=== PATIENT | female | born 1985 | race Caucasian/White ===

== ENCOUNTER 2021-08-14 23:10 | Observation (INO) ==
[2021-08-14] MEDS ORDERED: SODIUM CHLORIDE 0.9% 1000ML 1,000 ML IV STA (23:52)
[2021-08-14] MEDS ORDERED: ONDANSETRON INJ 2 MG/ML 2 ML VIAL IV STA (23:52)
--- NOTE | 2021-08-15 00:46 | Emergency Department Note ---
History of Present Illness General Chief complaint: Arrhythmia/Palpitations Stated complaint: IRREGULAR HEARTBEAT, NAUSEA Time Seen by Provider: 08/14/21 23:32 History of Present Illness Maximum Pain Intensity: 8 This 36 year old female patient with significant past medial history of meta static breast cancer presents to the ED today for evaluation of tachycardia and nausea. Pt. states she had tachycardia of >200 bpm all day, starting this morning, until about 9pm. She states her HR did occasionally drop to the 160's- 170's intermittently throughout the day, but until 9pm, did not drop to normal. She states she spent the entire day sleeping, notes she has had tachycardia like this before but has never been seen for it in the past. She states she has been tolerating PO fluids throughout the day, but has had decreased intake. She denies drug or alcohol use. She now complains of nausea, no vomiting. No abdominal pain. Generalized pain is rated 8/10 and sharp. Notes she feels "gas sy" and requesting "something for my belly." Home Medications Medication Instructions Recorded Confirmed Type multivitamin (Multiple Vitamins) 1 tab PO QAM 06/06/20 08/15/21 History lorazepam 0.5 mg tablet (Ativan) 1 mg PO DAILY PRN 09/24/20 08/15/21 History anastrozole 1 mg tablet (Arimidex) 1 mg PO QPM 04/04/21 08/15/21 History hydromorphone 8 mg tablet 12 mg PO .Q3 PRN tab 04/04/21 08/15/21 History (Dilaudid) methadone 10 mg tablet 10 mg PO TID tab 04/04/21 08/15/21 History palbociclib 75 mg capsule (Ibrance) See Rx Instructions PO DAILY 04/04/21 08/15/21 History prednisolone 5 mg tablet 5 mg PO DAILY #20 tab 07/19/21 08/15/21 Rx Blood Builder Otc 2 tab PO QAM 07/25/21 08/15/21 History albuterol sulfate 90 mcg/actuation 2 puff INHALATION Q6H PRN 07/25/21 08/15/21 History aerosol inhaler guaifenesin 600 mg tablet, 600 mg PO BID PRN #60 tab 08/05/21 08/15/21 Rx extended release 12 hr (Mucinex) nicotine 14 mg/24 hr daily 1 patch TRANSDERMAL DAILY 08/05/21 08/15/21 History transdermal patch ondansetron HCl 4 mg tablet 4 mg PO Q8H PRN 08/15/21 08/15/21 History Allergies Allergy/AdvReac Type Severity Reaction Status Date / Time banana Allergy Severe Anaphylaxis Verified 08/15/21 00:09 bupropion [From Wellbutrin] AdvReac Mild "Doesn't Verified 08/15/21 00:09 feel right" Past Med/Surg History Medical History Abnormal LFTs Acute respiratory failure with hypoxia Bronchitis HX PAST WINTER-LAST INHALER USE 07/24/21 Cancer of left breast metastatic to brain Chronic back pain Chronic prescription opiate use Dry cough Gastric ulcer HX 6 MONTHS AGO-TREATED [facility]-IMPROVED Hypoalbuminemia Hypoxia 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 Lung cancer Malignant pleural effusion Metastatic breast cancer osseous, brain( s/p stereotactic RT 04/2021) and currently undergoing further evaluation for cavitary and noncavitary pulmonary nodules 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 Flynn 07/11/2020 Family History Father Hypertension Grandfather Hypertension Grandmother Cancer Other Multiple sclerosis Social History Smoking Status: Current every day smoker Tobacco Type: Cigarettes packs per day: 0.5; Cigarettes Per Day: 10-20 CIGS A DAY; Second Hand Exposure: No; Hx Alcohol Use: No Hx Substance Use: No Preferred Language: Congolese Communication Ability: Effective Visual Impairment: No Limitations Hearing Ability: Normal Field Insurance Sales Manager Required: No Beliefs That Will Affect Care: None marital status: single Current Living Situation: Spouse current occupational status: unemployed current occupation: How many Children do You have: 2 Other Information That Helps Us Care for You: No Feels Safe at Home: Yes Safety Concerns: Feels Safe At This Time during the past year weight has: decreased > 10 lbs Physical Activity Frequency: Daily Assistive Devices: Glasses Review of Systems A total of 10 systems reviewed and were otherwise negative Physical Exam Vital Signs Vital Signs - 24 hr 08/14/21 23:25 08/15/21 00:27 08/15/21 02:00 Temperature 37 C Temperature Source Oral Pulse Rate 86 Pulse Rate [Right Finger] 80 71 Pulse Rhythm [Right Finger] Regular Regular Pulse Strength [Right Finger] Normal Normal Respiratory Rate 20 13 17 Respiratory Effort / Characteristics Non-Labored Spontaneous Non-Labored Spontaneous Respiratory Depth Normal Normal Respiratory Pattern Regular Blood Pressure 125/86 Blood Pressure [Right Arm] 111/85 112/80 Blood Pressure Mean 99 Blood Pressure Mean [Right Arm] 93 90 Blood Pressure Position [Right Arm] Lying Lying Pulse Oximetry 96 97 97 Oxygen Delivery Method Room Air Room Air Sepsis Recent Fever Within 48 Hours No Sepsis New/Unexplained Change in Mental Status No Sepsis Action Taken by Nursing No Action Required VITALS: Vitals are noted on the nurse's note and reviewed by myself. Vital signs stable. GENERAL: This is a 36-year-old white female, in no acute distress, nondiaphoretic, well-developed well-nourished. SKIN: The skin was without rashes, erythema, edema, or bruising. There is no tenting of the skin. Capillary refill less than 2 seconds. HEAD: Normocephalic atraumatic. EYES: Conjunctivae without injection, sclerae without icterus. NECK: Supple without nuchal rigidity. No lymphadenopathy. No thyromegaly. Cervical spine is nontender. No JVD. HEART: Regular rate and rhythm without murmurs gallops or rubs. LUNGS: Clear to auscultation bilaterally without wheezes, rales or rhonchi. No retractions or accessory muscle use. ABDOMEN: Positive bowel sounds x 4. Soft, nontender, without masses or organom egaly. Fam sign negative. No guarding or rebound tenderness. MUSCULOSKELETAL: No muscle atrophy, erythema, or edema noted. Full range of motion without joint tenderness in all extremities. No tenderness to palpation. Normal gait. Strength 5/5 throughout. NEURO: Patient was alert and oriented to person place and time. No focal neurological deficits. Course Course The patient was seen and evaluated as above. An order was placed for continuous cardiac monitoring. The monitor shows a normal sinus rhythm at a rate of 71 bpm. IV access obtained, labs drawn. Patient hydrated with IV fluids, medicated with Zofran. X-ray imaging performed and reviewed by myself as noted. Labs reviewed by myself. I discussed the findings with the patient at bedside. Discussed recommendation for admission. Patient was agreeable Discussed case with the truck sales manager. I discussed the [facility] He did agree to see and evaluate the patient for admission. Administered Medications Lactated Ringer's (Lr) 1,000 mls @ 75 mls/hr IV .[id number] ONE Stop: 08/15/21 15:37 Last Admin: 08/15/21 02:50 Dose: 75 mls/hr Documented by: [id number] Discontinued Medications Sodium Chloride (Nss 1000ml) 1,000 mls @ 999 mls/hr IV .[id number] STA Stop: 08/15/21 00:52 Last Infusion: 08/15/21 01:45 Dose: 0 mls/hr Documented by: [id number] Admin: 08/15/21 00:39 Dose: 999 mls/hr Documented by: [id number] Famotidine (Pepcid 20mg Iv Push) 20 mg in 5 mls @ 2.5 mls/min IV NOW STA Stop: 08/15/21 02:10 Last Admin: 08/15/21 02:24 Dose: 2.5 mls/min Documented by: [id number] Ioversol (Optiray 320 125ml) 125 ml IV ONCE ONE Stop: 08/15/21 02:47 Last Admin: 08/15/21 02:46 Dose: 118 ml Documented by: [id number] Morphine Sulfate (Morphine Sulfate 2 Mg/Ml Carp) 2 mg IV NOW STA Stop: 08/15/21 02:10 Last Admin: 08/15/21 02:24 Dose: 2 mg Documented by: [id number] Ondansetron HCl (Ondansetron Inj 2 Mg/Ml 2 Ml Vial) 4 mg IV NOW STA Stop: 08/14/21 23:53 Last Admin: 08/15/21 00:34 Dose: 4 mg Documented by: [id number] Ondansetron HCl (Ondansetron Inj 2 Mg/Ml 2 Ml Vial) 4 mg IV NOW STA Stop: 08/15/21 01:33 Last Admin: 08/15/21 01:45 Dose: 4 mg Documented by: [id number] Medical Decision Making Differential Diagnosis Premature contractions, electrolyte abnormality, cardiac dysrhythmia, thyroid dysfunction, pulmonary embolism, infection, gastrointestinal, as well as other pathologies. Medical Records Attestation: I reviewed the patient's medical records. Home Medications Current Medication List: was personally reviewed by me Laboratory Data Attestation: I reviewed the patient's lab results. No leukocytosis, a concern thrombocytopenia. Renal, hepatic function, and electrolytes without significant abnormality. INR 1.0. Troponin elevated at 685.5. TSH 0.228, free T4 0.87. Urinalysis negative for blood or evidence of infection. COVID-19 testing negative Result diagrams: 08/15/21 00:33 08/15/21 00:33 Lab Results 08/15/21 08/15/21 08/15/21 Range/Units 00:33 00:33 00:33 WBC 5.05 (4.8-10.8) K/uL RBC 3.33 L (4.2-5.4) M/uL Hgb 11.8 L (12.0-16.0) g/dL Hct 35.1 L (37-47) % MCV 105.4 H (80-100) fL MCH 35.4 H (25-34) pg MCHC 33.6 (32-36) g/dL RDW Std Deviation 65.5 H (36.4-46.3) fL RDW Coeff of Elsy 16.9 H (11.5-14.5) % Plt Count 278 (130-400) K/uL MPV 9.2 (7.4-10.4) fL Immature Gran % (Auto) 0.2 % Neut % (Auto) 86.5 % Lymph % (Auto) 8.5 % [place] % (Auto) 4.8 % Eos % (Auto) 0.0 % Baso % (Auto) 0.0 % Neut # (Auto) 4.37 (1.4-6.5) K/uL Lymph # (Auto) 0.43 L (1.2-3.4) K/uL [place] # (Auto) 0.24 (0.11-0.59) K/uL Eos # (Auto) 0.00 (0-0.5) K/uL Baso # (Auto) 0.00 (0-0.2) K/uL Immature Gran # (Auto) 0.01 (0.00-0.02) K/uL PT 10.7 (9.0-12.0) Seconds INR 1.0 (0.9-1.1) APTT 39.1 H (21.0-31.0) Seconds PTT Ratio 1.4 Sodium 138 (136-145) mmol/L Potassium 3.8 (3.5-5.1) mmol/L Chloride 105 (98-107) mmol/L Carbon Dioxide 25 (21-32) mmol/L Anion Gap 8 (3-11) BUN 17 (6-23) mg/dl Creatinine 0.55 L (0.6-1.2) mg/dl Est Cr Clr Drug Dosing 104.7 ml/min Est GFR ( Amer) 137.9 ml/min Est GFR (Non-Af Amer) 119.0 ml/min BUN/Creatinine Ratio 30.9 H (10-20) Glucose 126 H (70-99(Fasting)) mg/dl Calcium 9.0 (8.5-10.1) mg/dl Magnesium 2.0 (1.7-2.4) mg/dl Total Bilirubin 0.4 (0.2-1.0) mg/dl AST 17 (13-39) U/L ALT 14 (7-52) U/L Alkaline Phosphatase 49 (34-104) U/L Troponin I High Sens 685.5 H* (0-14) pg/ml Total Protein 7.0 (6.0-8.3) gm/dl Albumin 3.8 (3.4-5.0) gm/dl Globulin 3.2 (2.5-4.0) gm/dl Albumin/Globulin Ratio 1.2 (0.9-2) TSH (0.300-4.500) uIu/ml Free T4 (0.61-1.60) ng/dl Urine Color Urine Appearance (Clear) Urine pH (4.5-7.5) Ur Specific [place] (1.000-1.030) Urine Protein (Negative) Urine Glucose (UA) (Negative) Urine Ketones (Negative) Urine Blood (Negative) Urine Nitrite (Negative) Urine Bilirubin (Negative) Urine Urobilinogen (Negative) Ur Leukocyte Esterase (Negative) Urine WBC (Auto) (0-5) /hpf Urine RBC (Auto) (0-4) /hpf U Hyaline Cast (Auto) (0-5) /lpf U Epithel Cells (Auto) (0-5) /lpf Urine Bacteria (Auto) (Negative) Ur Renal Epithelial Cell Urine Opiates Screen (Neg) Ur Methadone, Qual (Neg) Urine Barbiturates (Neg) Ur Phencyclidine (PCP) (Neg) U Amphetamin/Meth Scrn (Neg) MDMA (Ecstasy) Screen (Neg) U Benzodiazepines Scrn (Neg) Ur Cocaine Metabolite (Neg) U Marijuana (THC) Screen (Neg) SARS-CoV-2, RNA, NAAT (NEGATIVE) 08/15/21 08/15/21 08/15/21 Range/Units 00:33 01:45 01:45 WBC (4.8-10.8) K/uL RBC (4.2-5.4) M/uL Hgb (12.0-16.0) g/dL Hct (37-47) % MCV (80-100) fL MCH (25-34) pg MCHC (32-36) g/dL RDW Std Deviation (36.4-46.3) fL RDW Coeff of Elsy (11.5-14.5) % Plt Count (130-400) K/uL MPV (7.4-10.4) fL Immature Gran % (Auto) % Neut % (Auto) % Lymph % (Auto) % [place] % (Auto) % Eos % (Auto) % Baso % (Auto) % Neut # (Auto) (1.4-6.5) K/uL Lymph # (Auto) (1.2-3.4) K/uL [place] # (Auto) (0.11-0.59) K/uL Eos # (Auto) (0-0.5) K/uL Baso # (Auto) (0-0.2) K/uL Immature Gran # (Auto) (0.00-0.02) K/uL PT (9.0-12.0) Seconds INR (0.9-1.1) APTT (21.0-31.0) Seconds PTT Ratio Sodium (136-145) mmol/L Potassium (3.5-5.1) mmol/L Chloride (98-107) mmol/L Carbon Dioxide (21-32) mmol/L Anion Gap (3-11) BUN (6-23) mg/dl Creatinine (0.6-1.2) mg/dl Est Cr Clr Drug Dosing ml/min Est GFR ( Amer) ml/min Est GFR (Non-Af Amer) ml/min BUN/Creatinine Ratio (10-20) Glucose (70-99(Fasting)) mg/dl Calcium (8.5-10.1) mg/dl Magnesium (1.7-2.4) mg/dl Total Bilirubin (0.2-1.0) mg/dl AST (13-39) U/L ALT (7-52) U/L Alkaline Phosphatase (34-104) U/L Troponin I High Sens (0-14) pg/ml Total Protein (6.0-8.3) gm/dl Albumin (3.4-5.0) gm/dl Globulin (2.5-4.0) gm/dl Albumin/Globulin Ratio (0.9-2) TSH 0.228 L (0.300-4.500) uIu/ml Free T4 0.87 (0.61-1.60) ng/dl Urine Color Yellow Urine Appearance Clear (Clear) Urine pH 8.0 H (4.5-7.5) Ur Specific [place] 1.032 H (1.000-1.030) Urine Protein 1+ H (Negative) Urine Glucose (UA) Negative (Negative) Urine Ketones Negative (Negative) Urine Blood Negative (Negative) Urine Nitrite Negative (Negative) Urine Bilirubin Negative (Negative) Urine Urobilinogen Negative (Negative) Ur Leukocyte Esterase Negative (Negative) Urine WBC (Auto) 1-5 (0-5) /hpf Urine RBC (Auto) 0-4 (0-4) /hpf U Hyaline Cast (Auto) 5-10 H (0-5) /lpf U Epithel Cells (Auto) >30 H (0-5) /lpf Urine Bacteria (Auto) Negative (Negative) Ur Renal Epithelial Cell Not Reportable Urine Opiates Screen Pos H (Neg) Ur Methadone, Qual Pos H (Neg) Urine Barbiturates Neg (Neg) Ur Phencyclidine (PCP) Neg (Neg) U Amphetamin/Meth Scrn Neg (Neg) MDMA (Ecstasy) Screen Neg (Neg) U Benzodiazepines Scrn Neg (Neg) Ur Cocaine Metabolite Neg (Neg) U Marijuana (THC) Screen Neg (Neg) SARS-CoV-2, RNA, NAAT (NEGATIVE) 08/15/21 Range/Units 01:45 WBC (4.8-10.8) K/uL RBC (4.2-5.4) M/uL Hgb (12.0-16.0) g/dL Hct (37-47) % MCV (80-100) fL MCH (25-34) pg MCHC (32-36) g/dL RDW Std Deviation (36.4-46.3) fL RDW Coeff of Elsy (11.5-14.5) % Plt Count (130-400) K/uL MPV (7.4-10.4) fL Immature Gran % (Auto) % Neut % (Auto) % Lymph % (Auto) % [place] % (Auto) % Eos % (Auto) % Baso % (Auto) % Neut # (Auto) (1.4-6.5) K/uL Lymph # (Auto) (1.2-3.4) K/uL [place] # (Auto) (0.11-0.59) K/uL Eos # (Auto) (0-0.5) K/uL Baso # (Auto) (0-0.2) K/uL Immature Gran # (Auto) (0.00-0.02) K/uL PT (9.0-12.0) Seconds INR (0.9-1.1) APTT (21.0-31.0) Seconds PTT Ratio Sodium (136-145) mmol/L Potassium (3.5-5.1) mmol/L Chloride (98-107) mmol/L Carbon Dioxide (21-32) mmol/L Anion Gap (3-11) BUN (6-23) mg/dl Creatinine (0.6-1.2) mg/dl Est Cr Clr Drug Dosing ml/min Est GFR ( Amer) ml/min Est GFR (Non-Af Amer) ml/min BUN/Creatinine Ratio (10-20) Glucose (70-99(Fasting)) mg/dl Calcium (8.5-10.1) mg/dl Magnesium (1.7-2.4) mg/dl Total Bilirubin (0.2-1.0) mg/dl AST (13-39) U/L ALT (7-52) U/L Alkaline Phosphatase (34-104) U/L Troponin I High Sens (0-14) pg/ml Total Protein (6.0-8.3) gm/dl Albumin (3.4-5.0) gm/dl Globulin (2.5-4.0) gm/dl Albumin/Globulin Ratio (0.9-2) TSH (0.300-4.500) uIu/ml Free T4 (0.61-1.60) ng/dl Urine Color Urine Appearance (Clear) Urine pH (4.5-7.5) Ur Specific [place] (1.000-1.030) Urine Protein (Negative) Urine Glucose (UA) (Negative) Urine Ketones (Negative) Urine Blood (Negative) Urine Nitrite (Negative) Urine Bilirubin (Negative) Urine Urobilinogen (Negative) Ur Leukocyte Esterase (Negative) Urine WBC (Auto) (0-5) /hpf Urine RBC (Auto) (0-4) /hpf U Hyaline Cast (Auto) (0-5) /lpf U Epithel Cells (Auto) (0-5) /lpf Urine Bacteria (Auto) (Negative) Ur Renal Epithelial Cell Urine Opiates Screen (Neg) Ur Methadone, Qual (Neg) Urine Barbiturates (Neg) Ur Phencyclidine (PCP) (Neg) U Amphetamin/Meth Scrn (Neg) MDMA (Ecstasy) Screen (Neg) U Benzodiazepines Scrn (Neg) Ur Cocaine Metabolite (Neg) U Marijuana (THC) Screen (Neg) SARS-CoV-2, RNA, NAAT NEGATIVE (NEGATIVE) Imaging Data My Impression: Chest x-ray, reviewed by myself: Left-sided pleural effusion and pulmonary lesions not significantly changed from previous x-rays. ECG Data Attestation: I personally reviewed and interpreted this ECG as follows: Indication: + chest pain Rate (beats per minute): 81 Rhythm: + normal sinus ECG [place]: + Normal ECG ST segments: no ST depression, no ST elevation or no T-wave inversions Blood Pressure Blood Pressure Findings: Normal blood pressure MDM Narrative This 36-year-old female patient with significant past medical history of metastatic breast cancer, chronic pleural effusion, pulmonary cavitary lesions, presents to the emergency department today for evaluation of tachycardia which she notes was greater than 200 all day today until about 9 PM. She decided to come in this evening due to complaints of nausea. There has been no vomiting. No pain except some generalized discomfort. No fever. No recent illness. The patient was found to have an elevated troponin. She did not exhibit any tachycardia or arrhythmias while here in the emergency department. [facility] and evaluation of her symptoms. Please see hospitalist dictation regarding ongoing management and final disposition of this patient. The chart was completed utilizing [employer] Speech voice recognition software. Grammatical errors, random word insertions, pronoun errors, and incomplete sentences are an occasional consequence of this system due to software limitations, ambient noise, and hardware issues. Any formal questions or concerns about the content, text, or information contained within the body of this dictation should be directly addressed to the provider for clarification. Impression & Plan Palpitations, Metastatic breast cancer, Elevated troponin I level Discharge Plan Visit Data Chief Complaint: Arrhythmia/Palpitations Stated Complaint: IRREGULAR HEARTBEAT, NAUSEA ED Provider: Dipti Valdivia ED Midlevel Provider: Renetta Alegria Discharge Problem: Palpitations, Metastatic breast cancer, Elevated troponin I level Patient Disposition: Admitted As Inpatient Discharge Instructions Interventions: ED Discharge Assessment Last Done: 08/15/21 02:56
[2021-08-15 00:53] LABS: Hematocrit (blood only) 35.1 % (37-47); Hemoglobin 11.8 g/dL (12.0-16.0); Immature Granulocytes # (auto) 0.01 K/uL (0.00-0.02); Immature Granulocytes % (auto) 0.2 %; Lymphocytes # (auto) 0.43 K/uL (1.2-3.4); Lymphocytes % (auto) 8.5 %; Mean Corpuscular Hemoglobin 35.4 pg (25-34); Mean Corpuscular Hgb Conc 33.6 g/dL (32-36); Mean Corpuscular Volume 105.4 fL (80-100); Mean Platelet Volume 9.2 fL (7.4-10.4); Monocytes # (auto) 0.24 K/uL (0.11-0.59); Monocytes % (auto) 4.8 %; Neutrophils # (auto) 4.37 K/uL (1.4-6.5); Neutrophils % (auto) 86.5 %; Platelet Count 278 K/uL (130-400); RDW Coefficient of Variation 16.9 % (11.5-14.5); RDW Standard Deviation 65.5 fL (36.4-46.3); Red Blood Count 3.33 M/uL (4.2-5.4); White Blood Count 5.05 K/uL (4.8-10.8)
[2021-08-15 00:54] LABS: Partial Thromboplastin Ratio 1.4; Partial Thromboplastin Time 39.1 Seconds (21.0-31.0); Prothrombin Time 10.7 Seconds (9.0-12.0)
[2021-08-15 01:05] LABS: Albumin Globulin Ratio 1.2 (0.9-2); Albumin Level 3.8 gm/dl (3.4-5.0); BUN Creatinine Ratio 30.9 (10-20); Bilirubin,Total 0.4 mg/dl (0.2-1.0); Creatinine Clr Calc Pharmacy 104.7 ml/min; Est GFR (African American) 137.9 ml/min; Globulin 3.2 gm/dl (2.5-4.0); Potassium 3.8 mmol/L (3.5-5.1)
[2021-08-15 01:20] LABS: Troponin I High Sensitivity 685.5 pg/ml (0-14)
[2021-08-15] MEDS ORDERED: ONDANSETRON INJ 2 MG/ML 2 ML VIAL IV STA (01:32)
[2021-08-15 01:34] LABS: Thyroid Stimulating Hormone 0.228 uIu/ml (0.300-4.500)
[2021-08-15 01:58] LABS: Appearance Urine Clear (Clear); Bilirubin Urine Negative (Negative); Blood Urine Negative (Negative); Color Urine Yellow; Glucose Urine UA Negative (Negative); Ketones Urine Negative (Negative); Leukocyte Esterase Urine Negative (Negative); Nitrite Urine Negative (Negative); Specific Gravity Urine 1.032 (1.000-1.030); Urobilinogen Urine Negative (Negative)
[2021-08-15 01:59] LABS: Protein Urine 1+ (Negative)
[2021-08-15 02:07] LABS: Epithelial Cell Urine Auto >30 /lpf (0-5)
[2021-08-15 02:08] LABS: Bacteria Urine Automated Negative (Negative); RBC Urine Automated 0-4 /hpf (0-4)
[2021-08-15 02:09] LABS: T4 Free Thyroxine 0.87 ng/dl (0.61-1.60)
[2021-08-15] MEDS ORDERED: FAMOTIDINE 20MG IV PUSH 20 MG/5 ML SYR IV STA (02:09)
[2021-08-15] MEDS ORDERED: MoRPHine SULFATE 2 MG/ML CARP IV STA (02:09)
--- NOTE | 2021-08-15 02:12 | History & Physical Report ---
Date of Service August 15, 2021 Assessment & Plan (1) Troponin level elevated: Plan: Possibly from tachycardia at home Patient heart rate currently within normal limits. Abdominal pain, nausea symptoms possibly from GI upset from recent steroid Rx Cough symptoms secondary to lung mets hx metastatic breast cancer (documented lung, bone, and brain mets) ongoing chemotherapy/hormonal therapy status post radiation chronic pain on narcotics history HCV, history IVDU ongoing tobacco abuse OBS PCU Follow troponin TTE if with progression Stop azithromycin and prednisone course. Famotidine for possible GERD DVT prophylaxis. SCDs Re: Brain mets Full code Text document was generated using [employer] voice recognition software. It may contain grammatical or spelling errors. Kindly contact undersigned for clarification of any documentation item in question. History of Present Illness Chief Complaint: Tachycardia, nausea, abdominal pain Primary Care Provider: Darlyn Harris History obtained from patient, family, and records. Medical history significant for metastatic breast cancer (documented lung, bone, and brain mets) ongoing chemotherapy/hormonal therapy status post radiation, chronic pain on narcotics, history HCV, history IVDU, ongoing tobacco abuse. Last confinement May 2020 for respiratory failure secondary to malignant pleural effusion left status post chest tube placement [place] [facility] [place] with dry cough, sore throat symptoms for weeks. No chest pain, no shortness of breath. Patient oncologist prescribed Z-Nick and prednisone course few days ago. No improvement in symptoms. Yesterday, patient woke up with a high pulse rate on her pulse ox., Heart rate in the 200s as per boyfriend. Patient denies chest pain, SOB, headache symptoms. Later on, patient noted achy epigastric discomfort somewhat burning with nausea symptoms. Patient brought to the ER for evaluation. Medical History as above Surgical History : Vascular device placement, section, ex lap, BTL, appendectomy, cervical conization Family History : MS, hypertension, liver cancer, heart disease Personal/Social history : 1/2 pack daily, no EtOH intake, homemaker Allergies Allergy/AdvReac Type Severity Reaction Status Date / Time banana Allergy Severe Anaphylaxis Verified 08/15/21 00:09 bupropion [From Wellbutrin] AdvReac Mild "Doesn't Verified 08/15/21 00:09 feel right" Home Medications Medication Instructions Recorded Confirmed Type multivitamin (Multiple Vitamins) 1 tab PO QAM 06/06/20 08/15/21 History lorazepam 0.5 mg tablet (Ativan) 1 mg PO DAILY PRN 09/24/20 08/15/21 History anastrozole 1 mg tablet (Arimidex) 1 mg PO QPM 04/04/21 08/15/21 History hydromorphone 8 mg tablet 12 mg PO .Q3 PRN tab 04/04/21 08/15/21 History (Dilaudid) methadone 10 mg tablet 10 mg PO TID tab 04/04/21 08/15/21 History palbociclib 75 mg capsule (Ibrance) See Rx Instructions PO DAILY 04/04/21 08/15/21 History prednisolone 5 mg tablet 5 mg PO DAILY #20 tab 07/19/21 08/15/21 Rx Blood Builder Otc 2 tab PO QAM 07/25/21 08/15/21 History albuterol sulfate 90 mcg/actuation 2 puff INHALATION Q6H PRN 07/25/21 08/15/21 History aerosol inhaler guaifenesin 600 mg tablet, 600 mg PO BID PRN #60 tab 08/05/21 08/15/21 Rx extended release 12 hr (Mucinex) nicotine 14 mg/24 hr daily 1 patch TRANSDERMAL DAILY 08/05/21 08/15/21 History transdermal patch ondansetron HCl 4 mg tablet 4 mg PO Q8H PRN 08/15/21 08/15/21 History Past Med/Surg History Medical History Abnormal LFTs Acute respiratory failure with hypoxia Bronchitis HX PAST WINTER-LAST INHALER USE 07/24/21 Cancer of left breast metastatic to brain Chronic back pain Chronic prescription opiate use Dry cough Gastric ulcer HX 6 MONTHS AGO-TREATED [facility]-IMPROVED Hypoalbuminemia Hypoxia 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 Lung cancer Malignant pleural effusion Metastatic breast cancer osseous, brain( s/p stereotactic RT 04/2021) and currently undergoing further evaluation for cavitary and noncavitary pulmonary nodules 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 Flynn 07/11/2020 Family History Father Hypertension Grandfather Hypertension Grandmother Cancer Other Multiple sclerosis Social History Smoking Status: Current every day smoker Tobacco Type: Cigarettes packs per day: 0.5; Cigarettes Per Day: 10-20 CIGS A DAY; Second Hand Exposure: No; Hx Alcohol Use: No Hx Substance Use: No Preferred Language: Turkmen Communication Ability: Effective Visual Impairment: No Limitations Hearing Ability: Normal Architecture Consultant Required: No Beliefs That Will Affect Care: None marital status: single Current Living Situation: Spouse current occupational status: unemployed current occupation: How many Children do You have: 2 Other Information That Helps Us Care for You: No Feels Safe at Home: Yes Safety Concerns: Feels Safe At This Time during the past year weight has: decreased > 10 lbs Physical Activity Frequency: Daily Assistive Devices: Glasses Review of Systems Review of Systems: As per HPI, all other systems reviewed and negative Physical Exam Physical Exam: GENERAL: uncomfortable, no respiratory distress SKIN: Normal color, warm HEENT: Bespectacled, [place] palpebral conjunctivae, no ptosis, dry buccal mucosa NECK : Supple, no tenderness CHEST : Decreased breath sounds, no tenderness, dressing over left sternum HEART : RRR, no obvious murmurs ABDOMEN: Some distention, minimal epigastric tenderness EXTREMITIES : No LE swelling/tenderness, no other conspicuous deformities noted NEUROLOGIC : Coherent, no facial asymmetry, gait and stance not assessed Results & Data Results & Data ([facility]) Vital Signs (Past 12 Hours) Vital Signs Temp Pulse Pulse Resp BP BP Pulse Ox 08/15/21 00:27 80 13 111/85 97 08/14/21 23:25 37 C 86 20 125/86 96 Laboratory Results Laboratory Results WBC 5.05 K/uL (4.8-10.8) 08/15/21 00:33 RBC 3.33 M/uL (4.2-5.4) L 08/15/21 00:33 Hgb 11.8 g/dL (12.0-16.0) L 08/15/21 00:33 Hct 35.1 % (37-47) L 08/15/21 00:33 MCV 105.4 fL (80-100) H 08/15/21 00:33 MCH 35.4 pg (25-34) H 08/15/21 00: MCHC 33.6 g/dL (32-36) 08/15/21 00: RDW Std Deviation 65.5 fL (36.4-46.3) H 08/15/21 00: RDW Coeff of Elsy 16.9 % (11.5-14.5) H 08/15/21 00:33 Plt Count 278 K/uL (130-400) 08/15/21 00:33 MPV 9.2 fL (7.4-10.4) 08/15/21 00:33 Immature Gran % (Auto) 0.2 % 08/15/21 00:33 Neut % (Auto) 86.5 % 08/15/21 00:33 Lymph % (Auto) 8.5 % 08/15/21 00:33 White % (Auto) 4.8 % 08/15/21 00:33 Eos % (Auto) 0.0 % 08/15/21 00:33 Baso % (Auto) 0.0 % 08/15/21 00:33 Neut # (Auto) 4.37 K/uL (1.4-6.5) 08/15/21 00:33 Lymph # (Auto) 0.43 K/uL (1.2-3.4) L 08/15/21 00:33 White # (Auto) 0.24 K/uL (0.11-0.59) 08/15/21 00:33 Eos # (Auto) 0.00 K/uL (0-0.5) 08/15/21 00:33 Baso # (Auto) 0.00 K/uL (0-0.2) 08/15/21 00:33 Immature Gran # (Auto) 0.01 K/uL (0.00-0.02) 08/15/21 00:33 PT 10.7 Seconds (9.0-12.0) 08/15/21 00: INR 1.0 (0.9-1.1) 08/15/21 00:33 APTT 39.1 Seconds (21.0-31.0) H 08/15/21 00: PTT Ratio 1.4 08/15/21 00:33 Sodium 138 mmol/L (136-145) 08/15/21 00: Potassium 3.8 mmol/L (3.5-5.1) 08/15/21 00: Chloride 105 mmol/L (98-107) 08/15/21 00: Carbon Dioxide 25 mmol/L (21-32) 08/15/21 00:33 Anion Gap 8 (3-11) 08/15/21 00: BUN 17 mg/dl (6-23) 08/15/21 00: Creatinine 0.55 mg/dl (0.6-1.2) L 08/15/21 00: Est Cr Clr Drug Dosing 104.7 ml/min 08/15/21 00:33 Est GFR ( Amer) 137.9 ml/min 08/15/21 00:33 Est GFR (Non-Af Amer) 119.0 ml/min 08/15/21 00:33 BUN/Creatinine Ratio 30.9 (10-20) H 08/15/21 00: Glucose 126 mg/dl (70-99(Fasting)) H 08/15/21 00: Calcium 9.0 mg/dl (8.5-10.1) 08/15/21 00: Magnesium 2.0 mg/dl (1.7-2.4) 08/15/21 00: Total Bilirubin 0.4 mg/dl (0.2-1.0) 08/15/21 00: AST 17 U/L (13-39) 08/15/21 00: ALT 14 U/L (7-52) 08/15/21 00: Alkaline Phosphatase 49 U/L (34-104) 08/15/21 00: Troponin I High Sens 685.5 pg/ml (0-14) H* 08/15/21 00: Total Protein 7.0 gm/dl (6.0-8.3) 08/15/21 00: Albumin 3.8 gm/dl (3.4-5.0) 08/15/21 00:33 Globulin 3.2 gm/dl (2.5-4.0) 08/15/21 00:33 Albumin/Globulin Ratio 1.2 (0.9-2) 08/15/21 00:33 TSH 0.228 uIu/ml (0.300-4.500) L 08/15/21 00:33 Free T4 0.87 ng/dl (0.61-1.60) 08/15/21 00:33 Urine Color Yellow 08/15/21 01:45 Urine Appearance Clear (Clear) 08/15/21 01:45 Urine pH 8.0 (4.5-7.5) H 08/15/21 01:45 Ur Specific [place] 1.032 (1.000-1.030) H 08/15/21 01:45 Urine Protein 1+ (Negative) H 08/15/21 01:45 Urine Glucose (UA) Negative (Negative) 08/15/21 01:45 Urine Ketones Negative (Negative) 08/15/21 01:45 Urine Blood Negative (Negative) 08/15/21 01:45 Urine Nitrite Negative (Negative) 08/15/21 01:45 Urine Bilirubin Negative (Negative) 08/15/21 01:45 Urine Urobilinogen Negative (Negative) 08/15/21 01:45 Ur Leukocyte Esterase Negative (Negative) 08/15/21 01:45 Urine WBC (Auto) 1-5 /hpf (0-5) 08/15/21 01:45 Urine RBC (Auto) 0-4 /hpf (0-4) 08/15/21 01:45 U Hyaline Cast (Auto) 5-10 /lpf (0-5) H 08/15/21 01:45 U Epithel Cells (Auto) >30 /lpf (0-5) H 08/15/21 01:45 Urine Bacteria (Auto) Negative (Negative) 08/15/21 01:45 Ur Renal Epithelial Cell Not Reportable 08/15/21 01:45 SARS-CoV-2, RNA, NAAT NEGATIVE (NEGATIVE) 08/15/21 01:[address] chest initial read: No evidence for pulmonaryembolism. Multiple cavitarylesions are again noted throughout both lungs, similar to the examination 05/03/2021. However, there are a fewthat are larger, most notable in the left lower lobe and there are similar pulmonarynodules scattered throughout the lungs. Findings are most consistent with pulmonary metastatic disease. There is also interlobular septal thickening and peribronchial cuffing in the left lower lobe, most consistent with lymphangitic spread of carcinomatosis. The left pleural effusion is similar in size. No pneumothorax. Extensive osseous metastatic disease is again noted, similar in presumed pathologic compression fractures at T1, T6 and T7. No significant alteration fromthe previous exam. The thoracic aorta is unremarkable. The cardiac chambers are stable. No pericardial effusion. No new mediastinal or hilar adenopathy. Right internal jugular approach portacatheter is noted extending its. Vena cava. Mastectomywith calcified left axillarylymph nodes are similar. CT abdomen pelvis initial read: Extensive osseous metastatic disease. The lumbar vertebral bodies are stable fromthe examination 05/03/2021with chronic loss of height at L3 and L4 levels. No acute osseous abnormalitynoted. Periportal lucency/edema is nonspecific but presumablyrelated to hypervolemiawith fold distention of the IVC. The liver, gallbladder, pancreas, spleen, adrenal glands and kidneys are otherwise unremarkable. No bowel obstruction. No definite asymmetric bowel mucosal abnormality. Postsurgical changes at the cecum, most consistent with prior appendectomy. No free intraperitoneal fluid or pneumoperitoneum. The bladder is unremarkable. No pelvic, retroperitoneal or abdominal lymphadenopathy. No significant overlying acute soft tissue abnormality. EKG as per my interpretation: Rate 80, NSR, normal axis, incomplete RBBB, T wave abnormalities inferior leads
[2021-08-15] MEDS ORDERED: ACETAMINOPHEN 325 MG TAB PO PRN (02:18)
[2021-08-15] MEDS ORDERED: LACTATED RINGER'S 1,000 ML IV ONE (02:18)
[2021-08-15 02:19] LABS: Amphetamines+Metham, Urine Neg (Neg); Barbiturates, Urine Neg (Neg); Benzodiazepine, Urine Neg (Neg); Cocaine, Urine Neg (Neg); MDMA (Ecstacy), Urine Neg (Neg); Methadone, Urine Pos (Neg); Opiate, Urine Pos (Neg); Phencyclidine, Urine Neg (Neg)
[2021-08-15] MEDS ORDERED: OPTIRAY 320 125ml IV ONE (02:46)
[2021-08-15] MEDS ORDERED: LORazepam 1 MG TAB PO PRN (03:34)
[2021-08-15] MEDS ORDERED: guaiFENesin 600 MG TABCR PO PRN (03:34)
[2021-08-15 04:28] LABS: Creatine Kinase 72 U/L (26-192); Lipase < 3 U/L (11-82); Troponin I High Sensitivity 797.2 pg/ml (0-14)
--- NOTE | 2021-08-15 07:06 | CT Scan Report ---
CT ANGIOGRAPHY OF THE CHEST, PULMONARY EMBOLUS PROTOCOL CLINICAL HISTORY: Tachycardia. Metastatic breast cancer. COMPARISON STUDY: Chest CT May 03, 2021. Chest radiograph August 15, 2021. TECHNIQUE: Following IV administration of 118 mL of Optiray, helical axial images of the chest were o btained utilizing the pulmonary embolus protocol. Maximal intensity projections and sagittal and cor onal reformats were viewed on an independent 3D workstation. IV contrast was administered without co mplication. Automated exposure control was utilized for the study. A dose lowering technique was ut ilized adhering to the principles of ALARA. CT DOSE: 468.96 mGy.cm FINDINGS: Right internal jugular [id number] is in place. No pulmonary emboli are identified. Ther e is no thoracic aortic dissection. Size of the heart is normal. There is no pericardial effusion. Le ft mastectomy is noted. Soft tissue thickening along the left axillary vessels is unchanged since griffin or exam. Multiple left chest wall masses are noted. These have slightly decreased in size since chest CT of September or 2021. Index lesion measures 1.4 cm on axial image 129 of 248. It previously measur ed 1.5 cm. A small malignant left pleural effusion is similar to prior exam. There is no pneumothorax . There is no right pleural effusion. Innumerable cavitary lesions throughout the lungs are again not ed. These are relatively similar to chest CT of May 03, 2021. Largest left lower lobe lesion sayra ures 4.1 x 3.7 cm. This previously measured 4.4 x 4.1 cm. Peripheral wall thickening has slightly dec reased. The majority of the nodules are unchanged. There may be lymphangitic spread within the left l ower lobe. Extensive skeletal metastatic disease similar to chest CT of May 03, 2021. Multiple pa thologic fractures within the thoracic spine are unchanged. Abdomen and pelvis will be reported separ ately. IMPRESSION: 1. No pulmonary emboli identified. 2. Minimal change since chest CT of May 03, 2021. Majority of cavitary pulmonary nodules and mass es are unchanged. Slight decrease in wall thickening of several lesions. No change in a small maligna nt left pleural effusion and extensive skeletal metastatic disease. 3. Slight decrease in a few left chest wall masses. ACT 112: Negative or not required by law. Electronically signed by: Jimenez Lim M.D. 08/15/2021 7:04 AM
--- NOTE | 2021-08-15 07:13 | XRay Report ---
XR chest 1V portable CLINICAL HISTORY: Dysrhythmia. Metastatic breast cancer. COMPARISON STUDY: Chest CT May 03, 2021. Chest radiograph August 05, 2021. FINDINGS: Right internal jugular [id number] is in place. Skeletal metastases appear similar to griffin or exam. A small left pleural effusion is similar to prior exam. Multiple cavitary lesions are again noted within the lungs. The largest is within the superior segment of the left lower lobe. Cardiomedi astinal silhouette is stable. There is no pneumothorax. IMPRESSION: No significant change in appearance of the chest. Small left pleural effusion, multiple cavitary lesions and skeletal metastatic disease. ACT 112: Negative or not required by law. Electronically signed by: Jimenez Lim M.D. 08/15/2021 7:11 AM
[2021-08-15 07:24] LABS: Estimated Average Glucose 114 mg/dl; Hemoglobin A1C 5.6 % (4.5-5.6)
--- NOTE | 2021-08-15 07:31 | CT Scan Report ---
ABDOMEN AND PELVIS CT WITH IV CONTRAST CT DOSE: HISTORY: Generalized abdominal pain. History of resected breast cancer. TECHNIQUE: Multiaxial CT images of the abdomen and pelvis were performed following the use of intrave nous contrast. A dose lowering technique was utilized adhering to the principles of ALARA. COMPARISON STUDY: Abdomen and pelvis CT 05/03/2020. FINDINGS: Please refer to same day chest CT for further evaluation of the lung bases including the sm all left pleural effusion and multiple pulmonary nodules. No pneumoperitoneum. No pneumatosis. Extens julia osteoblastic metastatic disease is again noted chronic compression deformities remain unchanged w ithin the lower thoracic and lumbar spine. Mild periportal edema. The main portal vein is patent. A f ew subcentimeter hypodensities within the liver remain stable and favor cysts. No new hepatic lesions identified. The spleen, pancreas, and gallbladder are unremarkable. Normal right adrenal gland. Stab le mild thickening of the left adrenal gland. No hydronephrosis. The bladder, uterus, bilateral adnex a are unremarkable. No retroperitoneal or pelvic lymphadenopathy. Normal caliber abdominal aorta. No bowel wall thickening or obstruction. The appendix is not identified and may be surgically absent. IMPRESSION: 1. Extensive osseous metastatic disease again noted. 2. Please refer the same day chest CT for further evaluation of the lung bases including the pulmonar y nodules and small left pleural effusion. 3. No definite bowel wall thickening or obstruction. ACT 112: Negative or not required by law. Electronically signed by: Michael Gonsalez M.D. 08/15/2021 7:29 AM
[2021-08-15] MEDS: METHADONE HCL 10 MG TAB PO SCH ×2 (08:38→14:50)
[2021-08-15] MEDS ORDERED: MULTIVITAMIN TAB PO SCH (09:00)
[2021-08-15] MEDS ORDERED: NICOTINE 14 MG/24 HR PATCH TD SCH (09:00)
[2021-08-15] MEDS: PROMETHAZINE HCL 6.25 MG in SODIUM CHLORIDE 0.9% 50 ML IV PRN ×2 (09:27→15:42)
--- NOTE | 2021-08-15 10:16 | Cardiology Consultation ---
Date of Consultation August 15, 2021 Assessment & Plan (1) Troponin level elevated: (2) Tachycardia: (3) Palpitations: (4) Metastatic breast cancer: (5) Pleural effusion: (6) Current smoker: 36 year old medically complex female- Medical history significant for metastatic breast cancer (documented lung, bone, and brain mets) ongoing chemotherapy/hormonal therapy status post radiation, chronic pain on narcotics, history HCV, history IVDU, ongoing tobacco abuse. Initially presented to the ED due to hours of tachycardia. Found to have an increased HS troponin- peaked at 797 and trending downward. No currently no ches pain or shortness of breath. No tachycardia noted on monitor over night and into today. 1. HR likely elevated in the setting of acute illness and prednisone use. Troponin minimally elevated, peaked at 797 and trending downward. Elevation likely due to prolonged tachycardia/increased demand. Patient is currently chest pain free, no palpitations. 2. CT of the chest showed no pericardial effusion- will update an echo to reassess LV systolic function. Patient would be a poor candidate for ischemic workup. 3. To avoid future hospital admission, will attempt to prevent further episodes of tachycardia- will start metoprolol tartrate 12.5 mg BID 4. Encouraged smoking cessation 5. Patient follows with [facility]. Case discussed with Dr. Gordillo Supervising Physician Co-Signing Physician Notes 36-year-old female admitted with palpitations and tachycardia. No recurrent symptoms since admission. Telemetry reveals sinus rhythm. Denies orthopnea, PND, or lower extremity edema. No chest discomfort or heaviness. No recent change in functional capacity. PE: VSS. Gen: NAD, chronically ill. Heart: Regular rhythm, normal S1-S2. No murmur, rub, gallop. Lungs: Clear bilateral, no rales, rhonchi, wheeze. Extremities: No edema. 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 Mildly elevated serum troponin noted. No chest discomfort or ischemic ECG changes. Preliminary review of bedside 2D transthoracic echocardiogram reveals normal wall motion, preserved LV systolic function, no pericardial effusion. Recommend addition of low-dose metoprolol, 12.5 mg twice daily. Outpatient 14-day ZIO monitor. Thank you for allow me to participate in the care of your patient. History of Present Illness Reason for Consultation: Elevated Troponin Requesting Physician: [facility] Hospitalist Attending Physician: Edson Quiroga MD History of Present Illness 36 year old medically complex female- Medical history significant for metastatic breast cancer (documented lung, bone, and brain mets) ongoing chemotherapy/hormonal therapy status post radiation, chronic pain on narcotics, history HCV, history IVDU, ongoing tobacco abuse- continues to smoke. Last confinement May 2020 for respiratory failure secondary to malignant pleural effusion left status post chest tube placement [place] [facility] [place] Patient has a bronch done by Dr. Velasquez on 08/05- biopsies pending. Patient found to have increased mucus production. Patient initially presented with a dry cough and sore throat for many weeks. Oncology placed patient on Z-pack and prednisone a few days ago. Yesterday patient woke with tachycardia/palpitations, HR as elevated between 160-200 bpm per the patient. Patient then developed achy epigastric discomfort and nausea. No chest pain or shortness of breath. CT of the Abdomen showed extensive metastatic disease CTA of the chest: 1. No pulmonary emboli identified. 2. Minimal change since chest CT of May 03, 2021. Majority of cavitary pulmonary nodules and masses are unchanged. Slight decrease in wall thickening of several lesions. No change in a small malignant left pleural effusion and extensive skeletal metastatic disease. 3. Slight decrease in a few left chest wall masses. Labs: Stable Hbg, platelets and WBC WNL, HS Trop elevated at 685>>797>>633, TSH low at 0.228, Covid negative EKG showed NSR with T wave inversions of leads III and aVF, leads V5-V6 with flattened T waves- nonspecific findings. Pervious echo in May 2021 showed LVEF 55-60%, no WMA, mild MR Upon entrance into the room- patient asleep in bed. Did not want to talk long. Would not open her eyes for the discussion, started off by saying "Can i please go home". Overall she states that she is feeling better from a cardiac standpoint- she has had no further episodes of palpitations. Tele showed NSR 60-70s. Occasional PVC. No chest pain. No unusual shortness of breath. Denied a ny fluid retention. Allergies Allergy/AdvReac Type Severity Reaction Status Date / Time banana Allergy Severe Anaphylaxis Verified 08/15/21 00:09 bupropion [From Wellbutrin] AdvReac Mild "Doesn't Verified 08/15/21 00:09 feel right" Home Medications Medication Instructions Recorded Confirmed Type multivitamin (Multiple Vitamins) 1 tab PO QAM 06/06/20 08/15/21 History lorazepam 0.5 mg tablet (Ativan) 1 mg PO DAILY PRN 09/24/20 08/15/21 History anastrozole 1 mg tablet (Arimidex) 1 mg PO QPM 04/04/21 08/15/21 History hydromorphone 8 mg tablet 12 mg PO .Q3 PRN tab 04/04/21 08/15/21 History (Dilaudid) methadone 10 mg tablet 10 mg PO TID tab 04/04/21 08/15/21 History palbociclib 75 mg capsule (Ibrance) See Rx Instructions PO DAILY 04/04/21 08/15/21 History prednisolone 5 mg tablet 5 mg PO DAILY #20 tab 07/19/21 08/15/21 Rx Blood Builder Otc 2 tab PO QAM 07/25/21 08/15/21 History albuterol sulfate 90 mcg/actuation 2 puff INHALATION Q6H PRN 07/25/21 08/15/21 History aerosol inhaler guaifenesin 600 mg tablet, 600 mg PO BID PRN #60 tab 08/05/21 08/15/21 Rx extended release 12 hr (Mucinex) nicotine 14 mg/24 hr daily 1 patch TRANSDERMAL DAILY 08/05/21 08/15/21 History transdermal patch ondansetron HCl 4 mg tablet 4 mg PO Q8H PRN 08/15/21 08/15/21 History Patient History Medical History Abnormal LFTs Acute respiratory failure with hypoxia Bronchitis HX PAST WINTER-LAST INHALER USE 07/24/21 Cancer of left breast metastatic to brain Chronic back pain Chronic prescription opiate use Dry cough Gastric ulcer HX 6 MONTHS AGO-TREATED [facility]-IMPROVED Hypoalbuminemia Hypoxia 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 Lung cancer Malignant pleural effusion Metastatic breast cancer osseous, brain( s/p stereotactic RT 04/2021) and currently undergoing further evaluation for cavitary and noncavitary pulmonary nodules 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 Flynn 07/11/2020 Family History Father Hypertension Grandfather Hypertension Grandmother Cancer Other Multiple sclerosis Social History Smoking Status: Current every day smoker Tobacco Type: Cigarettes packs per day: 0.5; Cigarettes Per Day: 10-20 CIGS A DAY; Second Hand Exposure: No; Hx Alcohol Use: No Hx Substance Use: No Preferred Language: Malay Communication Ability: Effective Visual Impairment: No Limitations Hearing Ability: Normal Camp Cook Required: No Beliefs That Will Affect Care: None marital status: single Current Living Situation: Spouse current occupational status: unemployed current occupation: How many Children do You have: 2 Other Information That Helps Us Care for You: No Feels Safe at Home: Yes Safety Concerns: Feels Safe At This Time during the past year weight has: decreased > 10 lbs Physical Activity Frequency: Daily Assistive Devices: Glasses Review of Systems Review of Systems: All systems reviewed & are unremarkable except as noted in HPI & below Results & Data ([facility]) Vital Signs (Past 12 Hours) Vital Signs Temp Pulse Pulse Resp BP BP Pulse Ox 08/15/21 07:40 70 08/15/21 04:47 71 08/15/21 03:00 36.8 C 71 14 119/77 96 08/15/21 02:00 71 17 112/80 97 08/15/21 00:27 80 13 111/85 97 08/14/21 23:25 37 C 86 20 125/86 96 Laboratory Results Cardiac Enzymes 08/15/21 08/15/21 08/15/21 Range/Units 00:33 03:26 08:07 AST 17 (13-39) U/L Troponin I High Sens 685.5 H* 797.2 H* 633.5 H* D (0-14) pg/ml Coagulation 08/15/21 Range/Units 00:33 PT 10.7 (9.0-12.0) Seconds APTT 39.1 H (21.0-31.0) Seconds CBC 08/15/21 Range/Units 00:33 WBC 5.05 (4.8-10.8) K/uL RBC 3.33 L (4.2-5.4) M/uL Hgb 11.8 L (12.0-16.0) g/dL Hct 35.1 L (37-47) % Plt Count 278 (130-400) K/uL Neut # (Auto) 4.37 (1.4-6.5) K/uL Lymph # (Auto) 0.43 L (1.2-3.4) K/uL Tyrrell # (Auto) 0.24 (0.11-0.59) K/uL Eos # (Auto) 0.00 (0-0.5) K/uL Baso # (Auto) 0.00 (0-0.2) K/uL Comprehensive Metabolic Panel 08/15/21 Range/Units 00:33 Sodium 138 (136-145) mmol/L Potassium 3.8 (3.5-5.1) mmol/L Chloride 105 (98-107) mmol/L Carbon Dioxide 25 (21-32) mmol/L BUN 17 (6-23) mg/dl Creatinine 0.55 L (0.6-1.2) mg/dl Glucose 126 H (70-99(Fasting)) mg/dl Calcium 9.0 (8.5-10.1) mg/dl AST 17 (13-39) U/L ALT 14 (7-52) U/L Alkaline Phosphatase 49 (34-104) U/L Total Protein 7.0 (6.0-8.3) gm/dl Albumin 3.8 (3.4-5.0) gm/dl Intake and Output 08/14/21 08/15/21 08/15/21 22:59 06:59 14:59 Intake Total 1000 / 999 50.25 / 50.25 Balance 1000 / 999 50.25 / 50.25 Intake: IV 1000 / 1000 50.25 / 50.25 Promethazine HCl 6.25 mg In 50.25 / 50.25 Sodium Chloride 0.9% 50 ml @ 201 mls/hr IV Q6H PRN Rx#: [id number] Sodium Chloride 0.9% 1000ML 1, 1000 / 1000 000 ml @ 999 mls/hr IV .Q1H1M STA Rx#:[id number] Other: Weight 56 kg Weight Measurement Method Built in Bedscale
[2021-08-15] MEDS ORDERED: METOPROLOL TARTRATE 25 MG TAB PO SCH (11:30)
--- NOTE | 2021-08-15 11:45 | Hospitalist Progress Note ---
Date of Service August 15, 2021 Assessment & Plan (1) Troponin level elevated: Plan: troponin high sensitivity 633 denies chest pain or sob cardio consulted -await inputs Abdominal pain, nausea symptoms possibly from GI upset from recent steroid Rx still feeling nauseous continue antiemetics and gentle fluids Cough symptoms secondary to lung mets hx metastatic breast cancer (documented lung, bone, and brain mets) ongoing chemotherapy/hormonal therapy status post radiation. f/u with heme/onco. chronic pain on narcotics history HCV, history IVDU ongoing tobacco abuse needs counselling DVT prophylaxis. SCDs Re: Brain mets Full code possible d/c today or in am. Admission and Anticipated Discharge Date Admission Date: August 15, 2021 Subjective sleeping still nauseous some abdominal discomfort no diarrhea no chest pain or sob wants to go home Review of Systems Review of Systems: All systems reviewed & are unremarkable except as noted in Subjective Physical Exam Neck: trachea midline, no thyromegaly Respiratory: normal respiratory effort, lungs clear to auscultation Cardiovascular: RRR, no murmur, no edema Gastrointestinal (Abdomen): normal bowel sounds, soft, nontender, no hepatosplenomegaly Neurologic: alert and oriented no facial palsy, no dysarthria, moves extremities Results & Data Results & Data ([facility]) Vital Signs (Past 12 Hours) Vital Signs Temp Pulse Pulse Resp BP Pulse Ox 08/15/21 07:40 70 08/15/21 04:47 71 08/15/21 03:00 36.8 C 71 14 119/77 96 08/15/21 02:00 71 17 112/80 97 08/15/21 00:27 80 13 111/85 97
--- NOTE | 2021-08-15 14:19 | Electrocardiogram Report ---
Test Reason : Blood Pressure : / mmHG Vent. Rate : 081 BPM Atrial Rate : 081 BPM P-R Int : 122 ms QRS Dur : 086 ms QT Int : 344 ms P-R-T Axes : 053 041 007 degrees QTc Int : 399 ms Normal sinus rhythm Nonspecific T wave abnormality Abnormal ECG When compared with ECG of 14-JAN-2021 14:24, Nonspecific T wave abnormality now evident in Inferior leads T wave inversion no longer evident in Anterior leads Confirmed by Kerwin Goodson ([id number]) on 08/15/2021 2:19:25 PM Referred By: REFERRED SELF Confirmed By:Kerwin Goodson
--- NOTE | 2021-08-15 17:04 | Discharge Summary ---
Date of Service August 15, 2021 Admission HPI Per Admitting Provider History obtained from patient, family, and records. Medical history significant for metastatic breast cancer (documented lung, bone, and brain mets) ongoing chemotherapy/hormonal therapy status post radiation, chronic pain on narcotics, history HCV, history IVDU, ongoing tobacco abuse. Last confinement May 2020 for respiratory failure secondary to malignant pleural effusion left status post chest tube placement patient transferred to [facility] [place]. Patient with dry cough, sore throat symptoms for weeks. No chest pain, no shortness of breath. Patient oncologist prescribed Z-Nick and prednisone course few days ago. No improvement in symptoms. Yesterday, patient woke up with a high pulse rate on her pulse ox., Heart rate in the 200s as per boyfriend. Patient denies chest pain, SOB, headache symptoms. Later on, patient noted achy epigastric discomfort somewhat burning with nausea symptoms. Patient brought to the ER for evaluation. Medical History as above Surgical History : Vascular device placement, section, ex lap, BTL, appendectomy, cervical conization Family History : MS, hypertension, liver cancer, heart disease Personal/Social history : 1/2 pack daily, no EtOH intake, homemaker Admission Exam (Per Admitting) Neck trachea midline, no thyromegaly Respiratory normal respiratory effort, lungs clear to auscultation Cardiovascular RRR, no murmur, no edema Gastrointestinal (Abdomen) normal bowel sounds, soft, nontender, no hepatosplenomegaly Discharge Data Consultations 08/15/21 01:31 ED Decision to Admit Stat 08/15/21 09:26 Consult Cardiology Routine Procedures Performed CTA chest: 1. No pulmonary emboli identified. 2. Minimal change since chest CT of May 03, 2021. Majority of cavitary pulmonary nodules and masses are unchanged. Slight decrease in wall thickening of several lesions. No change in a small malignant left pleural effusion and extensive skeletal metastatic disease. 3. Slight decrease in a few left chest wall masses. CT abd/pelvis with IV contrast: 1. Extensive osseous metastatic disease again noted. 2. Please refer the same day chest CT for further evaluation of the lung bases including the pulmonary nodules and small left pleural effusion. 3. No definite bowel wall thickening or obstruction. ECHO: No regional wall motion abnormalities EF 55-60% Mild MR Hospital Course (1) Troponin level elevated: troponin high sensitivity 633 trended down to 490 denies chest pain or sob possibly from tachycardia cardio consulted -started on low dose metoprolol Echo unremarkable Abdominal pain, nausea symptoms possibly from GI upset from recent steroid Rx still feeling nauseous continue antiemetics and gentle fluids still nauseous but wants to go home started on pepcid Cough symptoms secondary to lung mets hx metastatic breast cancer (documented lung, bone, and brain mets) ongoing chemotherapy/hormonal therapy status post radiation. f/u with heme/onco. chronic pain on narcotics history HCV, history IVDU ongoing tobacco abuse needs counselling Discharged home to followup with PCP
[2021-08-15] MEDS ORDERED: FAMOTIDINE 10 MG TABLET PO SCH (21:00)
[2021-08-15] MEDS ORDERED: ANASTROZOLE 1 MG TAB PO SCH (21:00)
[2021-08-17 12:46] LABS: Codeine Urine NEGATIVE ng/mL (<50); Hydrocodone Urine NEGATIVE ng/mL (<50); Hydromor Urine 4200 ng/mL (<50); Methadone, Ur Metabolite >10000 ng/mL (<100); Morphine Urine NEGATIVE ng/mL (<50); Norhydrocodone Conf Ur NEGATIVE ng/mL (<50); Noroxycodone Urine NEGATIVE ng/mL (<50); Oxycodone Urine NEGATIVE ng/mL (<50); Oxymorph Urine NEGATIVE ng/mL (<50)
== END 2021-08-15 17:54 | disposition home or self-care (01) ==
LOC: 2S 23:10 → ED 23:10 → 2S 08-15 02:56
DX: R00.0 Tachycardia, unspecified; J90 Pleural effusion, not elsewhere classified; Z91.018 Allergy to other foods; C79.81 Secondary malignant neoplasm of breast; R77.8 Other specified abnormalities of plasma proteins; R00.2 Palpitations; F17.210 Nicotine dependence, cigarettes, uncomplicated